=== PATIENT | female | born 1970 | race Caucasian/White ===

== ENCOUNTER 2021-11-24 21:44 | Emergency (ER) | payer SELFPAY ==
[2021-11-24 23:06] LABS: BASOPHIL 0.3 % (0-2); HCT 44.5 % (37.0-47.0); HGB 14.9 g/dl (12.5-16.0); LYMPHOCYTE 13.7 % (15-48); MCH 29.2 pg (25.0-31.0); MCHC 33.5 g/dL (32.0-36.0); MCV 87.1 fL (78.0-100.0); MONOCYTE 5.2 % (0-12); MPV 9.1 fL (6.0-9.5); NEUTROPHIL 79.5 % (41-80); NRBC 0; PLT 271 K/uL (150-400); RBC 5.11 M/uL (4.20-5.40); RDW 12.4 % (11.5-14.0); WBC 9.1 K/uL (4.0-10.5)
[2021-11-24 23:37] LABS: ALBUMIN 3.8 g/dL (3.4-5.0); BILIRUBIN - TOTAL 0.5 mg/dL (0.2-1.0); CREATININE 0.85 mg/dL (0.51-0.95); GLOBULIN (CALCULATION) 3.7 g/dL; POTASSIUM 3.7 mmol/L (3.5-5.1); TOTAL PROTEIN 7.5 g/dL (6.4-8.2)
[2021-11-25 00:10] LABS: BILIRUBIN NEGATIVE (NEGATIVE); BLOOD NEGATIVE Ery/uL (NEGATIVE); CLARITY CLEAR (CLEAR); COLOR YELLOW (YELLOW); GLUCOSE (U) NORMAL (NORMAL); LEUKOCYTES NEGATIVE Leu/uL (NEGATIVE); NITRITE NEGATIVE (NEGATIVE); PROTEIN NEGATIVE (NEGATIVE); SPECIFIC GRAVITY >=1.030 (1.001-1.030); UROBILINOGEN 0.2 mg/dL (0.2-1.0); pH 5.5 (5.0-9.0)
[2021-11-25] MEDS ORDERED: ONDANSETRON ODT4 MG PO ×2 (04:39→04:40)
[2021-11-25] MEDS ORDERED: PHENERGAN25 M1 PO ×2 (04:39→04:40)
== END 2021-11-25 05:27 | disposition home or self-care (01) ==
LOC: FER 21:44
PROVIDERS: Internal Medicine
DX: R10.13 Epigastric pain (principal); R11.2 Nausea with vomiting, unspecified; R19.7 Diarrhea, unspecified; Z91.041 Radiographic dye allergy status
CPT/HCPCS: 36415; 80053; 81003; 83690; 84484; 85025; 93005; J2405; J2550; J7030